=== PATIENT | male | born 1950 | race African-American/Black ===

== ENCOUNTER 2016-10-11 11:57 | Outpatient (CLI) | payer OTHER ==
--- NOTE | 2016-10-12 07:33 | RAD ---
LEFT ELBOW TWO VIEWS HISTORY: Left elbow pain. FINDINGS: Radial capitellar alignment is maintained. Prominent osteophytosis is present. No acute fracture, dislocation, or fluid distention of the joint capsule is apparent. IMPRESSION: Prominent osteoarthritic changes, left elbow. POS: [facility]
== END 2016-10-11 11:58 | disposition home or self-care (01) ==
LOC: NAV RAD 11:57
PROVIDERS: ATTEND Internal Medicine
DX: M25.522 Pain in left elbow (principal)

== ENCOUNTER 2018-08-11 10:28 | Outpatient (CLI) | payer MEDICARE, OTHER ==
--- NOTE | 2018-08-11 11:09 | RAD ---
XR Chest Pa Lat STANDARD HISTORY: Cough and weight loss with fatigue COMPARISON: 11/14/2014 FINDINGS: The heart size is normal. The lungs are well expanded without focal areas of consolidation, pneumothorax or pleural effusions. There are changes of median sternotomy. A left-sided pacemaker device is present. No acute osseous abnormalities are seen. IMPRESSION: No radiographic evidence of acute cardiopulmonary process.
[2018-08-11 11:20] LABS: ALT (SGPT) 29 U/L (8-55); AST (SGOT) 44 U/L (5-34); Albumin 4.2 g/dL (3.4-4.8); Alkaline Phosphatase 115 U/L (40-150); Anion Gap 16 mmol/L (10-20); BUN (Urea Nitrogen) 13 mg/dL (8.4-25.7); Bilirubin, Total 1.3 mg/dL (0.2-1.2); Calc. Creatinine Clearance 0 mL/min (70-130); Calcium 10.1 mg/dL (7.8-10.44); Carbon Dioxide 22 mmol/L (23-31); Chloride 103 mmol/L (98-107); Estimated GFR-MDRD 86; Globulin 2.9 g/dL (2.4-3.5); Glucose 98 mg/dL (80-115); Potassium 4.1 mmol/L (3.5-5.1); Protein, Total 7.1 g/dL (5.8-8.1); Sodium 137 mmol/L (136-145)
[2018-08-11 11:23] LABS: Hemoglobin 15.4 g/dL (14.0-18.0); Mean Corpuscular HGB CONC 31.7 g/dL (32.0-36.0); Mean Corpuscular Volume 88.4 fL (78.0-98.0); Mean Platelet Volume 7.1 fL (7.4-10.4); Platelet Count 104 thou/uL (130-400); RBC Distribution Width 14.9 % (11.5-14.5); Red Blood Cell (RBC) Count 5.51 mill/uL (4.70-6.10); White Blood Cell (WBC) Count 3.5 thou/uL (4.8-10.8)
[2018-08-11 11:24] LABS: Anisocytosis SLIGHT = 6-15 cells (100X) (0-5/hpf); Blast 1 % (0-0); Lymphocytes 36 % (21-51); MDiff Complete? YES; Monocytes 8 % (0-10); Neutrophil 55 % (42-75); Ovalocytes MODERATE= 6-15 cells (100X) (0-1/hpf); Platelet Morphology Comment Appears Decreased
== END 2018-08-11 10:29 | disposition home or self-care (01) ==
LOC: NAV LAB 10:28
PROVIDERS: ATTEND Nurse Practitioner Adult Health
DX: R05 Cough (principal); R63.4 Abnormal weight loss; R53.83 Other fatigue; Z85.72 Personal history of non-Hodgkin lymphomas
CPT/HCPCS: 36415; 71046; 80053; 85025